=== PATIENT | male | born 1950 | race Caucasian/White ===

== ENCOUNTER 2017-04-27 08:24 | Day surgery (SDC) | payer BC ==
[~2017-04-27 08:24] MED LIST: Buffered Lidocaine 0.9% SYRIN* 5 ML/SYR SYRINGE INTRADERM ONE; Bupivacaine 0.25% SDV* 30 ML ONE
[2017-04-27] MEDS ORDERED: ceFAZolin 2 GM PREMIX (*) 50 ML IVPB ONE (08:47)
[2017-04-27] MEDS ORDERED: fentaNYL* 50 MCG/ML 2 ML VIAL (100 MCG VIAL) ONE (09:29)
[2017-04-27] MEDS ORDERED: Midazolam* 1 MG/ML 2 ML VIAL (2 MG) ONE (09:29)
[2017-04-27] MEDS ORDERED: Famotidine IV* 10 MG/ML 2 ML (20 mg) ONE (09:54)
[2017-04-27] MEDS ORDERED: Ketorolac INJ* 30 MG/ML 1 ML VIAL ONE (10:04)
[2017-04-27] MEDS ORDERED: Propofol* 10 MG/ML 20 ML BTL IV PUSH ONE (10:04)
[2017-04-27] MEDS ORDERED: Dexamethasone IV* 4 MG/ML 1 ML (4 MG) ONE (10:04)
[2017-04-27] MEDS ORDERED: Lidocaine 2% PF * 5 ML VIAL ONE (10:04)
[2017-04-27] MEDS ORDERED: Lidocaine 1% MPF* 2 ML VIAL ONE (10:08)
[2017-04-27] MEDS ORDERED: Betamethasone INJ* 6 MG/ML 5 ML VIAL (30 MG) ONE (10:08)
[2017-04-27] MEDS ORDERED: PROCHLORPERAZINE INJ 5 MG/ML 2 ML VIAL IV PRN (10:41)
[2017-04-27] MEDS ORDERED: fentaNYL* 50 MCG/ML 2 ML VIAL (100 MCG VIAL) IV PRN (10:41)
[2017-04-27] MEDS ORDERED: DiMENhydriNATE IV* 50 MG/ML VIAL IV PUSH PRN (10:41)
[2017-04-27] MEDS ORDERED: HYDROcodone/ACETAMIN 5-325 MG* 1 TAB PO PRN (10:41)
[2017-04-27] MEDS ORDERED: Ondansetron INJ* 2 MG/ML VIAL IV PRN (10:41)
[2017-04-27] MEDS ORDERED: Acetaminophen TAB* 325 MG PO PRN (10:41)
[2017-04-27 12:11] VITALS: BP 129/77
--- NOTE | 2017-04-27 21:31 | OP ---
DATE OF OPERATION: 04/27/17 - MERGED WITH [facility] DATE OF : 52 SURGEON: Hayden Harrington MD JAVA APPLICATION DEVELOPER: NATANAEL Perrin. An internal medicine physician assistant was needed for the entirety of the procedure to aid in positioning of the arm and retraction. ANESTHESIOLOGIST: Dr. Rosales. ANESTHESIA: General. PRE-OP DIAGNOSES: 1. Right carpal tunnel syndrome. 2. Right cubital tunnel syndrome. POST-OP DIAGNOSES: 1. Right carpal tunnel syndrome. 2. Right cubital tunnel syndrome. OPERATIVE PROCEDURES: 1. Right open carpal tunnel release. 2. Right in situ cubital tunnel release. INDICATIONS: Montrell is 67. He has had progressive symptoms. He had electrodiagnostic studies. He has tried nonoperative treatments. We talked about risks and benefits. He wanted to proceed. ESTIMATED BLOOD LOSS: 2 mL. COMPLICATIONS: None. FINDINGS: As expected. DESCRIPTION OF PROCEDURE: Montrell was seen in the preoperative holding area. The correct side, site, and procedure were identified. We came back to the operating room where the arm was prepped and draped in the usual fashion after anesthesia was induced. A time-out was performed. The arm was exsanguinated with the Esmarch and the tourniquet inflated to 250 mmHg. I then made a 2 to 3 cm incision longitudinally in the standard location for an open carpal tunnel release. Dissection was carried down through the subcutaneous tissue and palmar fascia to expose the transverse carpal ligament. This was released just off the radial aspect of the hook of the hamate. The release was completed distally and the ulnar artery was quite prominent coming out of Guyon's canal. This was protected and retracted throughout. Once the release was completed distally, we proximally released the fascia and subcutaneous tissue retracted out volarly and ulnarly with the Teresa retractor. The remainder of the transverse carpal ligament, distal antebrachial fascia was released with the tenotomy scissors to a level several centimeters proximal to the wrist flexion crease. I then checked the decompression, everything looked really good, so we irrigated out the wound and the skin was closed with 4-0 nylon suture. I then made a curvilinear incision centered over Fajardo's ligament and extending proximally and distally 3 to 4 cm in either direction in line with the ulnar nerve. Dissection was carried down through the subcutaneous tissue proximally with the Bovie and distally with the tenotomy scissors. Once I got to the deep fascial layer, I went ahead and released the ulnar nerve just to the proximal aspect at Fajardo's ligament. The fascia was released to decompress it proximally well past the 8 cm proximal to the medial epicondyle. I then came distally and released Fajardo's ligament. I then released the superficial FCU fascia and then split the two heads of the FCU. There was a very prominent fascial septum between the two heads of the FCU that I released. I then released a very thick subfascial layer as well. Once I had the nerve completely decompressed proximally and distally, we checked the medial and ulnar nerve did not subluxate sufficient to warrant the transposition. We therefore obtained hemostasis with the Bovie cautery. The wound was irrigated. Subcutaneous tissue was reapproximated with 3-0 Vicryl and the skin was closed with 4-0 nylon. The operative area was infiltrated with 0.25% plain Marcaine. The wound was dressed with Xeroform, 4x4s, sterile Webril, and ABD, and an Carlos bandage. Tourniquet was deflated. He was woken up and taken to the recovery room in stable condition. [id number]/[facility] #: [id number]
--- NOTE | 2017-04-28 23:33 | OP ---
OPERATIVE REPORT: DATE OF OPERATION: 04/27/17 DATE OF : 52 SURGEON: Hayden Harrington MD SEGMENT PRODUCER: NATANAEL Perrin An journeyman operator assistant was needed for the entirety of the procedure to aid in positioning of the arm and retra ction. ANESTHESIOLOGIST: Dr. Rosales. ANESTHESIA: General. PRE-OP DIAGNOSES: 1. Right carpal tunnel syndrome. 2. Right cubital tunnel syndrome. POST-OP DIAGNOSES: 1. Right carpal tunnel syndrome. 2. Right cubital tunnel syndrome. PROCEDURES PERFORMED: 1. Right open carpal tunnel release. 2. Right in situ cubital tunnel release. INDICATIONS: Montrell has had progressive disease. I talked to him about treatment options. We talke d about risks and benefits. He wanted to proceed. ESTIMATED BLOOD LOSS: 5 mL. COMPLICATIONS: None. FINDINGS: He had severe compression of the nerve right under Fajardo's ligament over a length of ab out 2 to 3 cm. DESCRIPTION OF PROCEDURE: Montrell was seen in the preoperative holding area. The correct side, site, and procedure were identified. We came back to the operating room where the anesthesia was induced . The arm was prepped and draped in the usual fashion. A time-out was performed. I first exsanguinated the arm with the Esmarch and the tourniquet was inflated to 250 mmHg. I then made a 2 to 3 cm longitudinal incision in the standard location for an open carpal tunnel release. Dissection was carried down through the subcutaneous tissue and palmar fascia. The transverse carpa l ligament was released just off the radial aspect of the hook of the hamate. The release was compl eted distal and proximal. When I got proximal, I released the subcutaneous tissue and palmar fascia and retracted out volarly and ulnarly and completed the release under direct visualization with the tenotomy scissors. Once there was absolutely no compression on the nerve, I irrigated that out and closed with 4-0 nylon suture. I then made a curvilinear incision centered over Fajardo's ligament over the posterior medial elbow. Dissection was carried down with the Bovie proximally and with the tenotomy scissors distally taki ng care to preserve the medial antebrachial cutaneous nerve. I began to release just proximal to th e Fajardo's ligament and released a very thick vascular layer there all the way up past the arcade o f [place]. Once I completed the release proximally, I went ahead and released the Fajardo's ligam ent and then came distal and released the superficial FCU fascia. I split the 2 heads of the FCU an d released the subfascial layer. The release was carried out distal several centimeters distal to t he medial epicondyle. It was quite obvious that there was a very compressed and degenerative segmen t for about 2 to 3 cm just under Fajardo's ligament. I then flexed and extended the elbow, there wa s no subluxation in the ulnar nerve. I therefore irrigated out the wound. The subcutaneous tissue was reapproximated with 3-0 Vicryl and the skin was closed with 4-0 nylon suture. The wounds were t hen dressed with Xeroform, 4x4s, ABD at the elbow, sterile Webril, and an Carlos bandage. He was then woken up and taken to the recovery room in stable condition. [id number]/[facility] #: [id number]
== END 2017-04-27 12:08 | disposition home or self-care (01) ==
LOC: OREAST 08:24
PROVIDERS: ATTEND Orthopaedic Surgery Hand Surgery
DX: G56.01 Carpal tunnel syndrome, right upper limb (principal); G56.21 Lesion of ulnar nerve, right upper limb; Z87.891 Personal history of nicotine dependence; Z79.899 Other long term (current) drug therapy; I10 Essential (primary) hypertension; Z68.31 Body mass index [BMI] 31.0-31.9, adult; M19.90 Unspecified osteoarthritis, unspecified site
CPT/HCPCS: J0690; J0702; J1100; J1885; J2250; J2704; J3010